=== PATIENT | female | born 1980 | race African-American/Black ===

== ENCOUNTER 2016-11-11 11:43 | Emergency (ER) | payer OTHER ==
[2016-11-11 11:48] VITALS: BP 162/90; PULSE 80; TEMP 98.2; BMI 43.0
--- NOTE | 2016-11-11 12:22 | PDOC ---
History of Present Illness - General Chief Complaint: Back Pain Stated Complaint: FALL, LOWER BACK PAIN Time Seen by Provider: 11/11/16 12:01 History Source: Patient Exam Limitations: No Limitations - History of Present Illness Initial Comments: 11/11/16 12: MY Chief Complaint: fall yesterday now lower back pain History of Present Illnesses: She is a 36 y/o wiht no significant medical problems except for asthma here today due to having lower back pain since falling backwards yesterday. She denies any radiation of pain down the legs or any numbness of legs. Patient reports the pain is worse when trying to sit up or get up from a seated position. Patient reports the pain currently as a 7 out of 10. Patient denies hitting her head or having any wrist pain. He took an ibuprofen 400 mg at 7 am. 11/11/16 12:34 11/11/16 12:35 Occurred: reports: yesterday Severity: reports: moderate Pain Location: reports: back (lower back ) Method of Injury: Yes: fall Modifying Factors: improves with: None Loss of Consciousness: no loss of consciousness Associated Symptoms (Fall): denies symptoms Past History - Past Medical History Allergies/Adverse Reactions: Allergies Allergy/AdvReac Type Severity Reaction Status Date / Time Penicillins Allergy Mild vomitting Verified 11/11/16 11:44 Home Medications: Ambulatory Orders Cyclobenzaprine HCl [Flexeril -] 10 mg PO Q8H PRN #21 tablet 11/11/16 Naproxen [Naprosyn -] 500 mg PO BID PRN #14 tablet 11/11/16 Asthma: Yes Suicide Attempt (Hx): No - Surgical History Abdominal Surgery: Yes Cholecystectomy: Yes (2003) - Reproductive History (#): 5 Para: 3 Therapeutic (s) & number: Yes (1) Spontaneous : 1 - Immunization History Immunization Up to Date: Yes - Psycho/Social/Smoking Cessation Hx Anxiety: No Suicidal Ideation: No Smoking Status: No Smoking History: Never smoked Have you smoked in the past 12 months: No Number of Cigarettes Smoked Daily: 0 Information on smoking cessation initiated: No Hx Alcohol Use: No Drug/Substance Use Hx: No Substance Use Type: None Review of Systems - Review of Systems Able to Perform ROS?: Yes Constitutional: No: Symptoms Reported HEENTM: No: Symptoms Reported Respiratory: No: Symptoms reported Cardiac (ROS): No: Symptoms Reported ABD/GI: No: Symptoms Reported : No: Symptoms Reported Musculoskeletal: Yes: Back Pain (lower back b/l without radiation down legs) Integumentary: No: Symptoms Reported Neurological: No: Symptoms reported *Physical Exam - Vital Signs Last Vital Signs Temp Pulse Resp BP Pulse Ox 98.2 F 80 18 162/90 100 11/11/16 11:45 11/11/16 11:45 11/11/16 11:45 11/11/16 11:45 11/11/16 11:45 - Physical Exam General Appearance: Yes: Appropriately Dressed Neck: positive: Tender, Decreased range of motion, Rigidity, Tender lateral. negative: Lymphadenopathy (R), Lymphadenopathy (L), Tender midline Respiratory/Chest: positive: Lungs Clear, Normal Breath Sounds. negative: Chest Tender, Respiratory Distress Cardiovascular: positive: Regular Rhythm, Regular Rate, S1, S2 Musculoskeletal: positive: Normal Inspection, Decreased Range of Motion (from waist), Muscle Spasm (b/l paraspinal muscle lumbar). negative: CVA Tenderness, CVA Tenderness (R), CVA Tenderness (L), Vertebral Tenderness Extremity: positive: Normal Capillary Refill, Normal Inspection, Normal Range of Motion. negative: Tender Integumentary: positive: Normal Color Neurologic: positive: Alert, Normal Response, Motor Strength 5/5, Respond to painful stimul (legs ), Responsive. negative: Sensory Deficit (b/l legs) Deep Tendon Reflexes: Knee (L): 3+, Knee (R): 3+ Medical Decision Making - Medical Decision Making 11/11/16 12:34 She is a 36 y/o wiht no significant medical problems except for asthma here today due to having lower back pain since falling backwards yesterday. She denies any radiation of pain down the legs or any numbness of legs. Patient reports the pain is worse when trying to sit up or get up from a seated position. Patient reports the pain currently as a 7 out of 10. Patient denies hitting her head or having any wrist pain. Pt. took ibuprofen 400 mg po this 7am without relief of pain. 11/11/16 12:36 11/11/16 13:27 Fall, lower back strain PLAN: urine hcg negative Xray lumbar sacral no acute pathology Naprosyn 500 mg bid prn pain # 14 tabs flexeril 10 mg q 8 hrs prn muscle spasm # 21 tabs ortho referral 11/11/16 13:32 *DC/Admit/Observation/Transfer Diagnosis at time of Disposition: Low back strain Qualifiers: Encounter type: initial encounter Qualified Code(s): S39.012A - Strain of muscle, fascia and tendon of lower back, initial encounter - Discharge Dispostion Disposition: HOME Condition at time of disposition: Stable - Referrals Referrals: Ricki Ca MD [Staff Physician] - - Patient Instructions Additional Instructions: Avoid any strenuous activities or lifting or exercise Follow-up with orthopedist if pain continues He may apply heat pack to her lower back Return to emergency room if any numbness of legs or groin Patient voiced understanding of discharge instructions and questions were answered
[2016-11-11] MEDS ORDERED: KETOROLAC TROMETHAMINE 60 MG/2 ML VIAL ONE (12:44)
[2016-11-11] MEDS ORDERED: KETOROLAC TROMETHAMINE 60 MG/2 ML VIAL IM ONE (12:44)
== END 2016-11-11 14:08 | disposition home or self-care (01) ==
LOC: JERFT 11:43
PROC: 3E0233Z Introduction of Anti-inflammatory into Muscle, Percutaneous Approach (ICD-10-PCS; principal; 2016-11-11)
DX: S39.012A Strain of muscle, fascia and tendon of lower back, initial encounter (principal); W19.XXXA Unspecified fall, initial encounter; Y93.89 Activity, other specified; Y92.89 Other specified places as the place of occurrence of the external cause; J45.909 Unspecified asthma, uncomplicated
CPT/HCPCS: 72100-TC; 84703; 96372; 99281-25

== ENCOUNTER 2017-03-22 10:04 | Emergency (ER) | payer OTHER ==
[2017-03-22 10:34] VITALS: BP 146/89; PULSE 91; TEMP 98.3; BMI 43.0
[2017-03-22] MEDS ORDERED: IBUPROFEN 400 MG TABLET (FP) PO ONE ×2 (11:18→11:20)
--- NOTE | 2017-03-22 11:18 | PDOC ---
History of Present Illness - General Chief Complaint: Headache Stated Complaint: HEADACHE Time Seen by Provider: 03/22/17 10:44 History Source: Patient - History of Present Illness Timing/Duration: reports: other Associated Symptoms: denies: fever/chills, loss of consciousness, nausea/ vomiting, ringing in ears, seizures, tingling in legs/feet, vision changes Past History - Past Medical History Allergies/Adverse Reactions: Allergies Allergy/AdvReac Type Severity Reaction Status Date / Time Penicillins Allergy Mild vomitting Verified 03/22/17 10:34 Home Medications: Ambulatory Orders Budesonide/Formeterol Fumarate [SYMBICORT 160/4.5mcg -] 1 inh PO BID 03/22/17 Asthma: Yes Suicide Attempt (Hx): No - Surgical History Abdominal Surgery: Yes Cholecystectomy: Yes (2003) - Reproductive History (#): 5 Para: 3 Therapeutic (s) & number: Yes (1) Spontaneous : 1 - Immunization History Immunization Up to Date: Yes - Psycho/Social/Smoking Cessation Hx Anxiety: No Suicidal Ideation: No Smoking Status: No Smoking History: Never smoked Have you smoked in the past 12 months: No Number of Cigarettes Smoked Daily: 0 Information on smoking cessation initiated: No Hx Alcohol Use: No Drug/Substance Use Hx: No Substance Use Type: None Review of Systems - Review of Systems Constitutional: No: Fever, Unintentional Wgt. Loss HEENTM: No: Blurred Vision Neurological: Yes: Headache. No: Dizziness *Physical Exam - Vital Signs Last Vital Signs Temp Pulse Resp BP Pulse Ox 98.3 F 91 H 20 146/89 100 03/22/17 10:32 03/22/17 10:32 03/22/17 10:32 03/22/17 10:32 03/22/17 10:32 - Physical Exam General Appearance: Yes: Appropriately Dressed. No: Apparent Distress HEENT: positive: Normal Voice Neck: positive: Supple Respiratory/Chest: negative: Respiratory Distress Integumentary: positive: Dry, Warm, Other (~1cm hard, fixed, non-tender lesion to mid forehead between brows, no skin changes otherwise) Neurologic: positive: Fully Oriented, Alert, Normal Mood/Affect, Motor Strength 5/5 ED Treatment Course - RADIOLOGY Radiology Studies Ordered: Category Date Time Status HEAD CT WITHOUT CONTRAST [CT] Stat CT Scan 03/22/17 11:08 Ordered Medical Decision Making - Medical Decision Making 03/22/17 11:15 36-year-old female, no sig hx, p/w headaches. Pt reports mid frontal headaches that started several days ago, unable to describe, 7-8/10 and constant. Took motrin which did help relieve pain. As per pt, has had similar headaches for over a year that occurs several times a week and mostly resolves spontaneously after several hours. Denies any dizziness, visual changes, nausea or vomiting associated with headache. No unexplained weight loss. Patient states she has never been evaluated for headaches in the past and has not gone to see her primary doctor as he is located in [place], which is too far as per patient. Also complaining of painless swelling between eyebrows that has been present for 5 months and getting bigger. States this is her main concern today and that family encouraged her to come in and be evaluated See exam Chronic headaches No medical eval in the past No associated sxs Resolves spontaneously and better w/ otc meds No unexplained weight loss No red flags on exam Well judi and in NAD w/ no neuro deficits -dc w/ pmd f/u for possible referral to neurologist Painless swelling between eyebrows x 5 months Possible growing ~1cm, fixed, hard, non-tender lesion between eyebrows without overlying skin changes suspicious for possible osteoma vs cyst, no s/o infxn -will scan head r/o intracranial extension especially in setting of headaches -anticipate surgery f/u for treatment options 03/22/17 12:42 CT read as mild erosion of outer cortex of midline frontal calvarium at level of frontal sinus w/ collection of fat at site of erosion. Pt given copy of results and surgery referral. Discharged in stable condition 03/22/17 12:50 *DC/Admit/Observation/Transfer Diagnosis at time of Disposition: Facial swelling - Discharge Dispostion Disposition: HOME Condition at time of disposition: Good - Referrals Referrals: STAFF,NOT ON [Primary Care Provider] - Andriy Coleman MD [Staff Physician] - Dylon العلي MD [Staff Physician] - - Patient Instructions Printed Discharge Instructions: DI for Headache Additional Instructions: The cause of your swelling is unclear at this time. It is possibly a bony growth versus a cyst. Please follow up with plastic surgery for a consultation regarding treatment options Please follow up with neurology for further evaluation of your headaches
== END 2017-03-22 12:55 | disposition home or self-care (01) ==
LOC: JERFT 10:04 → JER 10:04 → JERFT 12:55
DX: R60.0 Localized edema (principal)
CPT/HCPCS: 70450-TC; 70486-TC; 84703; 99282-25